=== PATIENT | male | born 1955 | race Caucasian/White ===

== ENCOUNTER 2021-06-03 20:53 | Inpatient (IN) | payer MEDICARE, BC ==
[2021-06-03] MEDS ORDERED: ONDANSETRON 4 MG/2 ML VIAL IVP STA (21:25)
[2021-06-03] MEDS ORDERED: KETOROLAC 15 MG/ML 1 ML VIAL IVP STA (21:25)
[2021-06-03] MEDS ORDERED: SODIUM CHLORIDE 0.9% 1,000 ML IV ONE (21:26)
--- NOTE | 2021-06-03 21:57 | XR ---
EXAMINATION TYPE: XR chest 1V portable DATE OF EXAM: 06/03/2021 COMPARISON: NONE HISTORY: Short of breath TECHNIQUE: Single view FINDINGS: There is no heart failure nor confluent pneumonic infiltrate. There are chest leads. Costop hrenic angles are clear. Bony thorax is intact. IMPRESSION: No active cardiopulmonary disease.
[2021-06-03 22:25] LABS: Basophils % (A) 0 %; Eosinophils # (A) 0.1 k/uL (0-0.7); Eosinophils % (A) 1 %; HCT 43.3 % (39.0-53.0); HGB 14.3 gm/dL (13.0-17.5); Lymphocytes # (A) 0.7 k/uL (1.0-4.8); Lymphocytes % (A) 8 %; MCH 30.6 pg (25.0-35.0); MCV 92.6 fL (80.0-100.0); Monocytes # (A) 0.6 k/uL (0-1.0); Monocytes % (A) 6 %; Neutrophils # (A) 7.7 k/uL (1.3-7.7); Neutrophils % (A) 83 %; Platelet Count 260 k/uL (150-450); RBC 4.68 m/uL (4.30-5.90); RDW 12.7 % (11.5-15.5); WBC 9.2 k/uL (3.8-10.6)
[2021-06-03 22:46] LABS: ALT 57 U/L (4-49); AST 70 U/L (17-59); African American GFR (CKD) >90 (>60 ml/min/1.73 sqM); Albumin 3.2 g/dL (3.5-5.0); Alkaline Phosphatase 87 U/L (38-126); Anion Gap 12 mmol/L; Blood Urea Nitrogen 22 mg/dL (9-20); Calcium 8.5 mg/dL (8.4-10.2); Carbon Dioxide 21 mmol/L (22-30); Chloride 101 mmol/L (98-107); Glucose 131 mg/dL (74-99); Magnesium 2.1 mg/dL (1.6-2.3); Non-African American GFR(CKD) 89 (>60 ml/min/1.73 sqM); Potassium 3.9 mmol/L (3.5-5.1); Sodium 134 mmol/L (137-145); Total Bilirubin 1.1 mg/dL (0.2-1.3); Total Protein 6.5 g/dL (6.3-8.2)
--- NOTE | 2021-06-04 | ED ---
SOB HPI - General Chief Complaint: Shortness of Breath Stated Complaint: Weakness, covid+ Source: patient, EMS Mode of arrival: EMS Limitations: no limitations - History of Present Illness Initial Comments: 66-year-old male with past history of hypertension presents emergency department for weakness. EMS was called to the house as the patient was difficult to arouse at home. He was diagnosed with Covid on Saturday after having symptoms of fatigue, weakness, lack of appetite and shortness of breath. He was seen in the [facility] on Saturday and had antibody infusion. He reports that they did a CT and there is no acute findings. He was placed on Augmentin however doesn't know what for. He has not been able to hold down any food or drink for 3 days. Admits to continued right-sided flank pain. No changes in his bladder habits. Does admit to some diarrhea. No chest pain or shortness of breath at this time. He has not been vaccinated against Covid. No alleviating, precipitating or modifying factors - Related Data Home Medications Medication Instructions Recorded Confirmed Amoxic-Pot Clav 875-125Mg 1 tab PO BID 06/03/21 06/03/21 [Augmentin 875-125] Triamterene/Hydrochlorothiazid 1 tab PO DAILY 06/03/21 06/03/21 [Maxzide 37.5-25] Allergies Allergy/AdvReac Type Severity Reaction Status Date / Time No Known Allergies Allergy Verified 06/03/21 23:39 Review of Systems ROS Statement: Those systems with pertinent positive or pertinent negative responses have been documented in the HPI. ROS Other: All systems not noted in ROS Statement are negative. Past Medical History Past Medical History: Hypertension History of Any Multi-Drug Resistant Organisms: None Reported Past Surgical History: No Surgical Hx Reported Smoking Status: Never smoker Past Alcohol Use History: None Reported Past Drug Use History: None Reported General Exam Limitations: no limitations Course Vital Signs 06/03/21 20:55 Temperature 98.9 F Pulse Rate 93 Respiratory 22 Rate Blood Pressure 115/82 O2 Sat by Pulse 91 L Oximetry Medical Decision Making - Medical Decision Making Upon arrival patient is placed in room 8. Thorough history and physical exam is performed. IV access established the patient is given a liter bolus of normal saline, 50 mg of Toradol informal grams Zofran. Laboratories his her conducted. I did attempt to get the patient's records from [facility] however we are unable to complete this successfully as phone lines or dizzy when we attempt to call. I did repeat a chest x-ray. I spoke with the patient in regards to his symptoms. Recommended admission for continued hydration and antiemetics which the patient did agree to. Will attempt to obtain the patient's [place] records in the morning. He agreed to this plan. Patient will be admitted to Dr. Aguilar - Lab Data Result diagrams: 06/03/21 21:57 06/03/21 21:57 Lab Results 06/03/21 06/03/21 06/03/21 Range/Units 21:57 21:57 21:57 WBC 9.2 (3.8-10.6) k/uL RBC 4.68 (4.30-5.90) m/uL Hgb 14.3 (13.0-17.5) gm/dL Hct 43.3 (39.0-53.0) % MCV 92.6 (80.0-100.0) fL MCH 30.6 (25.0-35.0) pg MCHC 33.0 (31.0-37.0) g/dL RDW 12.7 (11.5-15.5) % Plt Count 260 (150-450) k/uL MPV 7.0 Neutrophils % 83 % Lymphocytes % 8 % Monocytes % 6 % Eosinophils % 1 % Basophils % 0 % Neutrophils # 7.7 (1.3-7.7) k/uL Lymphocytes # 0.7 L (1.0-4.8) k/uL Monocytes # 0.6 (0-1.0) k/uL Eosinophils # 0.1 (0-0.7) k/uL Basophils # 0.0 (0-0.2) k/uL Sodium 134 L (137-145) mmol/L Potassium 3.9 (3.5-5.1) mmol/L Chloride 101 (98-107) mmol/L Carbon Dioxide 21 L (22-30) mmol/L Anion Gap 12 mmol/L BUN 22 H (9-20) mg/dL Creatinine 0.89 (0.66-1.25) mg/dL Est GFR (CKD-EPI)AfAm >90 (>60 ml/min/1.73 sqM) Est GFR (CKD-EPI)NonAf 89 (>60 ml/min/1.73 sqM) Glucose 131 H (74-99) mg/dL Plasma Lactic Acid Jerry 2.7 H* (0.7-2.0) mmol/L Calcium 8.5 (8.4-10.2) mg/dL Magnesium 2.1 (1.6-2.3) mg/dL Total Bilirubin 1.1 (0.2-1.3) mg/dL AST 70 H (17-59) U/L ALT 57 H (4-49) U/L Alkaline Phosphatase 87 (38-126) U/L Total Protein 6.5 (6.3-8.2) g/dL Albumin 3.2 L (3.5-5.0) g/dL - EKG Data EKG Comments: 12-lead EKG demonstrates a sinus rhythm with ventricular rate of 91. MN in terval 206. QRS 158. QTC of 465. Right bundle-branch block. ST depression V4 through V6. No ST segment elevation Disposition Clinical Impression: COVID-19 virus infection, Nausea and vomiting Disposition: ADMITTED IP TO THIS [facility] Condition: Stable Is patient prescribed a controlled substance at d/c from ED?: No Referrals: Robson De Jesus MD [Primary Care Provider] - 1-2 days Decision to Admit Reason: Admit from EC Decision Date: 06/04/21 Decision Time: 00:08
[2021-06-04] MEDS ORDERED: ONDANSETRON 4 MG/2 ML VIAL IVP PRN (00:08)
[2021-06-04] MEDS ORDERED: IBUPROFEN 400 MG TAB PO PRN (00:08)
[2021-06-04] MEDS ORDERED: NALOXONE 0.4 MG/ML 1 ML VIAL IV PRN (00:08)
[2021-06-04] MEDS: DEXAMETHASONE SOD PHOSPHATE 10 MG/ML 1 ML VIAL IVP SCH ×2 (01:48→08:58)
[2021-06-04] MEDS: SODIUM CHLORIDE 0.9% 1,000 ML IV SCH ×4 (01:50→18:31)
[2021-06-04 02:25] LABS: INR 1.1 (<1.2); Partial Thromboplastin Time 24.4 sec (22.0-30.0); Prothrombin Time 11.4 sec (9.0-12.0)
[2021-06-04 07:41] LABS: Appearance,Urine Cloudy (Clear); Bilirubin,Urine 1+ (Negative); Blood,Urine Negative (Negative); Color,Urine Dark Yellow; Glucose,Urine (UA) Trace (Negative); Hyaline Casts,Urine 8 /lpf (0-2); Ketones,Urine 1+ (Negative); Leukocyte Esterase,Urine Negative (Negative); Mucus,Urine Many /hpf; Nitrite,Urine Negative (Negative); Protein,Urine 1+ (Negative); RBC,Urine <1 /hpf (0-5); Specific Gravity,Urine 1.032 (1.001-1.035); Squamous Epithelial Cell,Urine 1 /hpf (0-4); WBC,Urine 6 /hpf (0-5)
[2021-06-04] MEDS: AMOXIC-POT CLAV 875-125MG 1 EACH TAB PO SCH ×2 (08:14→21:53)
[2021-06-04] MEDS ORDERED: TRIAMTERENE-HCTZ 37.5-25MG 1 EACH TAB PO SCH (09:00)
[2021-06-04] MEDS ORDERED: ENOXAPARIN 40 MG/0.4 ML SYRINGE SQ SCH (12:45)
[2021-06-04 13:51] LABS: African American GFR (CKD) >90 (>60 ml/min/1.73 sqM); Anion Gap 11 mmol/L; Blood Urea Nitrogen 23 mg/dL (9-20); Calcium 8.5 mg/dL (8.4-10.2); Carbon Dioxide 21 mmol/L (22-30); Chloride 102 mmol/L (98-107); Glucose 213 mg/dL (74-99); Non-African American GFR(CKD) 85 (>60 ml/min/1.73 sqM); Potassium 4.3 mmol/L (3.5-5.1); Sodium 134 mmol/L (137-145)
[2021-06-04] MEDS ORDERED: RX INFO: IV CONTRAST WAS GIVEN 1 EACH MISC MISCELLANE PRN (16:36)
--- NOTE | 2021-06-04 16:44 | P.HPIM ---
History of Present Illness H&P Date: 06/04/21 Chief Complaint: Weak tired This is a pleasant 66-year-old patient who follows with Dr. De Jesus. Patient is having 5 days symptoms of fever or chills decreased taste and smell some loose stools very poor appetite tired rundown. 7 days ago on Saturday patient tested for positive for COVID. 19. Patient received immunoglobulin infusion on Saturday. Patient had not taken the COVID-19 vaccine. Progressively patient became more and more weak. Some shortness of breath. Very tired rundown. Barely able to eat for last 3 days. Has brought to the ER. In the ER patient had his first meal earlier today. Review of systems: GEN.: Decreased appetite tired and rundown EYES: None HEENT: None NECK: None RESPIRATORY: Short of breath CARDIOVASCULAR: None GASTROINTESTINAL: Some diarrhea GENITOURINARY: None MUSCULOSKELETAL: Muscle achiness LYMPHATICS: None HEMATOLOGICAL: None PSYCHIATRY: None NEUROLOGICAL: None Past medical history to include: Hypertension Social history: Mother lives with him. Works as a daily followed. No smoking no alcohol. Family history: Reviewed, noncontributory to presentation Physical examination: VITAL SIGNS: 98.9, 93, 22, 150/82, 91% on room air GENERAL: BMI 30.7, reclining bed, awake, tired. EYES: Pupils equal. Conjunctiva normal. HEENT: External appearance of nose and ears normal, oral cavity grossly normal. NECK: JVD not raised; masses not palpable. HEART: First and second heart sounds are normal; no edema. LUNGS: Respiratory rate normal; decreased breath sound some basal crackles. ABDOMEN: Soft, nontender, liver spleen not palpable, no masses palpable. PSYCH: Alert and oriented x3; mood and affect normal. MUSCULOSKELETAL:No Clubbing/cyanosis;muscles-grossly intact NEUROLOGICAL: Cranial nerves grossly intact; no facial asymmetry, power and sensation grossly intact. LYMPHATICS: No lymph nodes palpable in the axilla and neck INVESTIGATIONS, reviewed in the clinical context: D-dimer greater than 34 White count 9.2 hemoglobin 14.3 platelets 260 sodium 134 potassium 3.9 BUN 22 creatinine 0.89 Lactic acid 2.7 AST 17 ALT 57 albumin 3.2 Coronavirus [PCR]: Detected EKG tracing sinus rhythm, right bundle branch block, some ST segment changes. Chest x-ray film personally reviewed by me-possible right-sided infiltrate Assessment and plan: -Acute COVID 19 pneumonitis. Tested +7 days prior to presentation. Had symptoms 5 days prior to that. Did not receive the vaccine from the same. Dexamethasone subcu Lovenox -Acute hypoxic respiratory failure from COVID 19 pneumonitis Oxygen supplementation. Dexamethasone. -Acute dehydration from poor oral intake IV fluids -Acute medical asthenia from COVID-19 from decreased oral intake -Essential hypertension Currently hold diuretics. -Abnormal EKG. 2-D echocardiogram. Troponin. Patient does not have any chest pain. Telemetry. -V fluids. Dexamethasone. Diet as tolerated. Oxygen supplementation. Lovenox 100 mg subcu every 12. CT chest rule out PE. Care was discussed with the patient. Activity as tolerated. Past Medical History Past Medical History: Hypertension History of Any Multi-Drug Resistant Organisms: None Reported Past Surgical History: No Surgical Hx Reported Smoking Status: Never smoker Past Alcohol Use History: None Reported Past Drug Use History: None Reported - Past Family History Father Family Medical History: Unable to Obtain Medications and Allergies Home Medications Medication Instructions Recorded Confirmed Type Amoxic-Pot Clav 875-125Mg 1 tab PO BID 06/03/21 06/03/21 History [Augmentin 875-125] Triamterene/Hydrochlorothiazid 1 tab PO DAILY 06/03/21 06/03/21 History [Maxzide 37.5-25] Allergies Allergy/AdvReac Type Severity Reaction Status Date / Time No Known Allergies Allergy Verified 06/03/21 23:39 Physical Exam Vitals: Vital Signs Temp Pulse Pulse Resp BP BP Pulse Ox 06/04/21 11:32 97.7 F 84 18 115/79 98 06/04/21 10:53 70 06/04/21 08:45 70 18 06/04/21 08:05 98.2 F 70 18 100/76 98 06/04/21 06:00 98.4 F 79 16 106/74 99 06/04/21 01:00 98.4 F 77 16 92/72 96 06/03/21 20:55 98.9 F 93 22 115/82 91 L Intake and Output 06/03/21 06/04/21 06/04/21 22:59 06:59 14:59 Output Total 340 Balance -340 Output: Urine 340 Other: # Voids 1 Weight 99.79 kg 99.79 kg Results CBC & Chem 7: 06/03/21 21:57 06/04/21 13:10 Labs: Abnormal Lab Results - Last 24 Hours (Table) 06/03/21 06/03/21 06/03/21 Range/Units 21:57 21:57 21:57 Lymphocytes # 0.7 L (1.0-4.8) k/uL Sodium 134 L (137-145) mmol/L Carbon Dioxide 21 L (22-30) mmol/L BUN 22 H (9-20) mg/dL Glucose 131 H (74-99) mg/dL Plasma Lactic Acid Jerry 2.7 H* (0.7-2.0) mmol/L AST 70 H (17-59) U/L ALT 57 H (4-49) U/L Albumin 3.2 L (3.5-5.0) g/dL Urine Protein (Negative) Urine Glucose (UA) (Negative) Urine Ketones (Negative) Urine Bilirubin (Negative) Urine WBC (0-5) /hpf Hyaline Casts (0-2) /lpf Urine Mucus (None) /hpf Coronavirus (PCR) (Not Detectd) 06/04/21 06/04/21 Range/Units 01:11 07:22 Lymphocytes # (1.0-4.8) k/uL Sodium (137-145) mmol/L Carbon Dioxide (22-30) mmol/L BUN (9-20) mg/dL Glucose (74-99) mg/dL Plasma Lactic Acid Jerry (0.7-2.0) mmol/L AST (17-59) U/L ALT (4-49) U/L Albumin (3.5-5.0) g/dL Urine Protein 1+ H (Negative) Urine Glucose (UA) Trace H (Negative) Urine Ketones 1+ H (Negative) Urine Bilirubin 1+ H (Negative) Urine WBC 6 H (0-5) /hpf Hyaline Casts 8 H (0-2) /lpf Urine Mucus Many H (None) /hpf Coronavirus (PCR) Detected A (Not Detectd)
[2021-06-04 17:40] LABS: Glucose,Whole Blood 211 mg/dL (75-99)
--- NOTE | 2021-06-04 19:49 | CT ---
EXAMINATION TYPE: CT angio chest DATE OF EXAM: 06/04/2021 COMPARISON: None HISTORY: Elevated d-dimer, Covid + CT DLP: 484.9 mGycm Automated exposure control for dose reduction was used. CONTRAST: Performed with IV Contrast, patient injected with 100 mL of Isovue 370. Images obtained from the thoracic inlet to the diaphragm with IV contrast. There are Three-D postproc essed images. There is right pleural effusion. There is some mild infiltrate or atelectasis right lung base. There is mild subsegmental atelectasis left lung base. There are multiple large filling defects in the lowe r lobe pulmonary arteries bilaterally. There is also some involvement of the upper lobe pulmonary art eries. Heart size is normal. There is no pericardial effusion. There is no mediastinal adenopathy. There are no hilar masses. The bony thorax is intact. There is some spurring in the thoracic spine. IMPRESSION: Multiple large pulmonary emboli in the upper and lower lobes and predominantly in the lower lobes. No evidence of right heart strain. Right lower lobe infiltrate and pleural fluid could relate to pulmonary infarct. The results of this exam were discussed with the patient's attending staff on the nursing station at 7:45 PM.
[2021-06-04] MEDS ORDERED: ENOXAPARIN 100 MG/ML SYRINGE SQ SCH (21:00)
[2021-06-04] MEDS ORDERED: HEPARIN SODIUM 1,000 UN/ML (10ML VL) IV ONE (21:01)
[2021-06-04] MEDS ORDERED: HEPARIN SODIUM 1,000 UN/ML (10ML VL) IV PRN (21:01)
[2021-06-04] MEDS: HEPARIN SOD,PORK IN 0.45% NACL 25,000 UNIT in 0.45% NACL 1 250ML.BAG IV SCH (21:54)
[2021-06-04 22:34] LABS: Basophils % (A) 0 %; Eosinophils % (A) 0 %; HCT 41.8 % (39.0-53.0); HGB 13.6 gm/dL (13.0-17.5); Lymphocytes # (A) 0.8 k/uL (1.0-4.8); Lymphocytes % (A) 6 %; MCH 30.1 pg (25.0-35.0); MCHC 32.4 g/dL (31.0-37.0); MCV 92.9 fL (80.0-100.0); Mean Platelet Volume 7.4; Monocytes # (A) 0.7 k/uL (0-1.0); Monocytes % (A) 6 %; Neutrophils # (A) 10.3 k/uL (1.3-7.7); Neutrophils % (A) 86 %; Platelet Count 255 k/uL (150-450); RDW 12.3 % (11.5-15.5); WBC 11.9 k/uL (3.8-10.6)
[2021-06-04 23:09] LABS: INR 1.2 (<1.2); Partial Thromboplastin Time 159.5 sec (22.0-30.0); Prothrombin Time 12.9 sec (9.0-12.0)
[2021-06-05] MEDS: ACETAMINOPHEN TAB 325 MG TAB PO PRN ×2 (00:22→20:24)
[2021-06-05] MEDS: SODIUM CHLORIDE 0.9% 1,000 ML IV SCH ×7 (03:24→17:15)
[2021-06-05 09:22] LABS: Basophils % (A) 0 %; Eosinophils % (A) 0 %; HCT 40.9 % (39.0-53.0); HGB 13.3 gm/dL (13.0-17.5); Lymphocytes # (A) 0.9 k/uL (1.0-4.8); Lymphocytes % (A) 7 %; MCH 30.6 pg (25.0-35.0); MCHC 32.5 g/dL (31.0-37.0); MCV 94.1 fL (80.0-100.0); Mean Platelet Volume 7.4; Monocytes # (A) 0.6 k/uL (0-1.0); Monocytes % (A) 4 %; Neutrophils # (A) 11.2 k/uL (1.3-7.7); Neutrophils % (A) 88 %; Partial Thromboplastin Time 41.2 sec (22.0-30.0); Platelet Count 261 k/uL (150-450); RBC 4.35 m/uL (4.30-5.90); RDW 12.5 % (11.5-15.5); WBC 12.8 k/uL (3.8-10.6)
[2021-06-05] MEDS: DEXAMETHASONE SOD PHOSPHATE 10 MG/ML 1 ML VIAL IVP SCH (09:23)
[2021-06-05] MEDS: AMOXIC-POT CLAV 875-125MG 1 EACH TAB PO SCH (09:23)
[2021-06-05 09:41] LABS: African American GFR (CKD) >90 (>60 ml/min/1.73 sqM); Anion Gap 6 mmol/L; Blood Urea Nitrogen 29 mg/dL (9-20); C Reactive Protein 6.6 mg/dL (<1.0); Calcium 8.2 mg/dL (8.4-10.2); Carbon Dioxide 20 mmol/L (22-30); Chloride 107 mmol/L (98-107); Glucose 177 mg/dL (74-99); Non-African American GFR(CKD) >90 (>60 ml/min/1.73 sqM); Potassium 4.1 mmol/L (3.5-5.1); Sodium 133 mmol/L (137-145)
--- NOTE | 2021-06-05 12:44 | ECHOF ---
Referral Reason: MEASUREMENTS -------- HEIGHT: 180.3 cm WEIGHT: 99.8 kg BP: 117/84 RVIDd: 4.1 cm (< 3.3) IVSd: 1.3 cm (0.6 - 1.1) LVIDd: 3.9 cm (3.9 - 5.3) LVPWd: 1.3 cm (0.6 - 1.1) IVSs: 2.1 cm LVIDs: 3.1 cm LVPWs: 2.2 cm LA Diam: 2.8 cm (2.7 - 3.8) Ao Diam: 3.7 cm (2.0 - 3.7) AV Cusp: 2.6 cm (1.5 - 2.6) MV EXCURSION: 18.395 mm (> 18.000) MV EF SLOPE: 62 mm/s (70 - 150) EPSS: 0.3 cm MV E Dmitry: 0.73 m/s MV DecT: 249 ms MV A Dmitry: 0.75 m/s MV E/A Ratio: 0.97 RAP: 5.00 mmHg RVSP: 42.27 mmHg TAPSE: 17.57 mm FINDINGS -------- Sinus rhythm. This was a technically adequate study. The left ventricular size is normal. There is mild concentric left ventricular hypertrophy. Overa ll left ventricular systolic function is normal with, an EF between 55 - 60 %. The right ventricle is moderately enlarged. The right ventricular systolic function is moderately i mpaired. Trabeculae seen in RV. The left atrium is normal in size. The right atrial size is normal. Interatrial and interventricular septum intact. The aortic valve is trileaflet, and appears structurally normal. No aortic stenosis or regurgitation. The mitral valve is normal. Mild mitral regurgitation is present. The tricuspid valve appears structurally normal. Mild tricuspid regurgitation present. There is m ild pulmonary hypertension. The right ventricular systolic pressure, as measured by Doppler, is 42. 27mmHg. The pulmonic valve is normal. The aortic root size is normal. Normal inferior vena cava with normal inspiratory collapse consistent with estimated right atrial pre ssure of 5 mmHg. There is no pericardial effusion. CONCLUSIONS -------- 1. There is mild concentric left ventricular hypertrophy. 2. Overall left ventricular systolic function is normal with, an EF between 55 - 60 %. 3. The right ventricle is moderately enlarged. 4. The right ventricular systolic function is moderately impaired. 5. The aortic valve is trileaflet, and appears structurally normal. No aortic stenosis or regurgitati on. 6. Mild mitral regurgitation is present. 7. Mild tricuspid regurgitation present. 8. There is mild pulmonary hypertension. 9. There is no pericardial effusion. HOP SORTER: Clarissa Navarrete RDCS
[2021-06-05] MEDS ORDERED: REMDESIVIR 200 MG in SODIUM CHLORIDE 0.9% 250 ML IVPB ONE (13:00)
--- NOTE | 2021-06-05 14:48 | P.CNPUL ---
History of Present Illness Consult date: 06/05/21 Requesting physician: Anthony Aguilar Reason for consult: dyspnea, hypoxemia, pulmonary embolism, abnormal CXR/CT Chief complaint: Respiratory distress. History of present illness: Pulmonary consult dated 06/05/2021. 66-year-old male that we seen today in room 363, in consultation. The patient apparently presented to the emergency department on 06/03/2021, complaining of shortness of breath, and weakness. He apparently been sick for 2 or 3 days prior to coming into the emergency room. He apparently was profoundly weak at home, and when EMS arrived to the home, he was difficult to arouse. He states that he was "unconscious". He apparently was recently diagnosed as having coronavirus infection, with symptoms of fatigue and weakness. He apparently was seen at the [facility] on a prior Saturday, and had antibody infusion. At that time, he apparently had a CT, but there was no reported pulmonary emboli. He was placed on Augmentin recently, for suspected gallbladder disease. The patient has not been vaccinated against coronavirus infection. He recently did have an episode of shingles. Other than hypertension, the patient has no known past medical or surgical history. He is a lifelong nonsmoker. He denies any alcohol or illicit drug use. Chest x-ray here was not too remarkable. CT angiogram showed significant bilateral pulmonary emboli, with significant clot burden. No right heart strain on CT angiogram, and an echocardiogram was ordered. We did ask vascular surgery to see the patient. White count 12.8, hemoglobin 13.3, hematocrit 40.9, platelet count 261,000. D-dimer was greater than 34.1. Sodium 133, potassium 4.1, chlorides 107, CO2 20, anion gap 6, BUN 29, and creatinine 0.84. Troponin was 0.423. C-reactive protein was 6.6. Echocardiogram revealed mild concentric left ventricular hypertrophy, with an ejection fraction between 55-60%. The right ventricle was moderately enlarged. The right ventricular systolic function is moderately impaired. [place] relatively normal. There was mild mitral regurgitation and mild tricuspid regurgitation, and mild pulmonary hypertension. Review of Systems REVIEW OF SYSTEMS: CONSTITUTIONAL: Fatigue and weakness. NEUROLOGIC: [ Negative.] HEENT: [ Negative.] CARDIAC: [Negative.] PULMONARY: Shortness of breath. GI: Poor appetite. Diarrhea. : [Negative.] RHEUMATOLOGIC: [ Negative.] IMMUNOLOGIC: [ Negative.] ENDOCRINE: [Negative. ] DERMATOLOGIC: [Negative.] Past Medical History Past Medical History: Hypertension History of Any Multi-Drug Resistant Organisms: None Reported Past Surgical History: No Surgical Hx Reported Smoking Status: Never smoker Past Alcohol Use History: None Reported Past Drug Use History: None Reported - Past Family History Father Family Medical History: Unable to Obtain Medications and Allergies Home Medications Medication Instructions Recorded Confirmed Type Amoxic-Pot Clav 875-125Mg 1 tab PO BID 06/03/21 06/03/21 History [Augmentin 875-125] Triamterene/Hydrochlorothiazid 1 tab PO DAILY 06/03/21 06/03/21 History [Maxzide 37.5-25] Allergies Allergy/AdvReac Type Severity Reaction Status Date / Time No Known Allergies Allergy Verified 06/03/21 23:39 Physical Exam Osteopathic Statement: *. No significant issues noted on an osteopathic structural exam other than those noted in the History and Physical/Consult. Vitals: Vital Signs Temp Pulse Resp BP Pulse Ox 06/05/21 12:00 70 20 133/64 98 06/05/21 08:00 98.1 F 74 20 109/69 98 06/05/21 04:00 98.3 F 64 20 117/84 96 06/05/21 02:00 68 20 06/05/21 00:00 97.5 F L 68 20 104/75 96 06/04/21 20:00 97.5 F L 77 20 109/69 96 06/04/21 18:33 97.7 F 83 20 98/75 98 06/04/21 18:22 88 104/67 06/04/21 17:54 90 20 100/77 99 06/04/21 15:00 80 144/76 Intake and Output 06/04/21 06/05/21 06/05/21 22:59 06:59 14:59 Intake Total 24.847 620.709 Output Total 300 150 525 Balance -300 -125.153 95.709 Intake: Intake, IV Titration 24.847 140.709 Amount Heparin Sod,Pork in 0.45% 24.847 140.709 NaCl 25,000 unit In 0.45 % NaCl 1 250ml.bag @ 18 UNITS/KG/HR 17.962 mls/hr IV .[id number] [facility] Rx#: [id number] Oral 480 Output: Urine 300 150 525 Other: Voiding Method Urinal Urinal No acute distress, oriented 3. Currently on 2 L nasal cannula. HEENT examination is grossly unremarkable. Neck supple. Full range of motion. No adenopathy thyromegaly or neck vein d istention. Cardiovascular examination reveals regular rhythm rate. S1-S2 normal. No S3 or S4. No discernible murmur noted. Heart rate 70 bpm. Lungs reveal mild bilateral rhonchi. No wheezes or crackles. Breath sounds equal bilaterally. Saturations are 98% on 2 L. Abdomen soft bowel sounds are heard. No masses or tenderness. Extremities are intact. No cyanosis clubbing or edema. Skin is without rash or lesion. Neurologic examination is brief but nonfocal. Results - Laboratory Findings CBC and BMP: 06/05/21 08:40 06/05/21 08:40 PT/INR, D-dimer PT 12.9 sec (9.0-12.0) H 06/04/21 22:13 INR 1.2 (<1.2) H 06/04/21 22:13 D-Dimer >34.10 mg/L FEU (<0.60) H 06/05/21 08:40 Abnormal lab findings: Abnormal Labs 06/03/21 06/03/21 06/03/21 21:57 21:57 21:57 WBC Neutrophils # Lymphocytes # 0.7 L PT INR APTT D-Dimer Sodium 134 L Carbon Dioxide 21 L BUN 22 H Glucose 131 H POC Glucose (mg/dL) Plasma Lactic Acid Jerry 2.7 H* Calcium AST 70 H ALT 57 H Troponin I C-Reactive Protein Albumin 3.2 L Urine Protein Urine Glucose (UA) Urine Ketones Urine Bilirubin Urine WBC Hyaline Casts Urine Mucus Coronavirus (PCR) 06/04/21 06/04/21 06/04/21 01:11 07:22 13:10 WBC Neutrophils # Lymphocytes # PT INR APTT D-Dimer >34.10 H Sodium Carbon Dioxide BUN Glucose POC Glucose (mg/dL) Plasma Lactic Acid Jerry Calcium AST ALT Troponin I C-Reactive Protein Albumin Urine Protein 1+ H Urine Glucose (UA) Trace H Urine Ketones 1+ H Urine Bilirubin 1+ H Urine WBC 6 H Hyaline Casts 8 H Urine Mucus Many H Coronavirus (PCR) Detected A 06/04/21 06/04/21 06/04/21 13:10 17:39 18:09 WBC Neutrophils # Lymphocytes # PT INR APTT D-Dimer Sodium 134 L Carbon Dioxide 21 L BUN 23 H Glucose 213 H POC Glucose (mg/dL) 211 H Plasma Lactic Acid Jerry Calcium AST ALT Troponin I 0.423 H* C-Reactive Protein Albumin Urine Protein Urine Glucose (UA) Urine Ketones Urine Bilirubin Urine WBC Hyaline Casts Urine Mucus Coronavirus (PCR) 06/04/21 06/04/21 06/05/21 22:13 22:13 08:40 WBC 11.9 H 12.8 H Neutrophils # 10.3 H 11.2 H Lymphocytes # 0.8 L 0.9 L PT 12.9 H INR 1.2 H APTT 159.5 H* D-Dimer Sodium Carbon Dioxide BUN Glucose POC Glucose (mg/dL) Plasma Lactic Acid Jerry Calcium AST ALT Troponin I C-Reactive Protein Albumin Urine Protein Urine Glucose (UA) Urine Ketones Urine Bilirubin Urine WBC Hyaline Casts Urine Mucus Coronavirus (PCR) 06/05/21 06/05/21 08:40 08:40 WBC Neutrophils # Lymphocytes # PT INR APTT 41.2 H D-Dimer >34.10 H Sodium 133 L Carbon Dioxide 20 L BUN 29 H Glucose 177 H POC Glucose (mg/dL) Plasma Lactic Acid Jerry Calcium 8.2 L AST ALT Troponin I C-Reactive Protein 6.6 H Albumin Urine Protein Urine Glucose (UA) Urine Ketones Urine Bilirubin Urine WBC Hyaline Casts Urine Mucus Coronavirus (PCR) - Diagnostic Findings Chest x-ray: image reviewed CT scan - chest: image reviewed Assessment and Plan Assessment: Acute bilateral pulmonary emboli, with significant clot burden, secondary to coronavirus infection. Acute coronavirus infection, with minimal pneumonia on x-ray/computed tomography scan. History of hypertension. Plan: Plan dated 06/05/2021. We have asked vascular surgery to see the patient or possible catheter directed TPA and ultrasound dissolution of the clot. There was no evidence of right h eart strain on the CT angiogram. The patient appears to be relatively stable with good oxygenation on 2 L. Not much or any coronavirus associated pneumonia on chest x-ray scan. The patient appears to have been sick for more than 7 days, and therefore, is not a candidate for REM. Additional recommendations and suggestions are forthcoming. Prognosis is guarded. Time with Patient: Greater than 30
[2021-06-05] MEDS ORDERED: fentaNYL (PF) 50 MCG/ML 2 ML AMP ONE (15:42)
[2021-06-05] MEDS ORDERED: MIDAZOLAM 2 MG/2 ML VIAL IVP ONE (15:43)
[2021-06-05] MEDS ORDERED: LIDOCAINE 1% INJ 10MG/ML (20 ML MDV) ONE (15:43)
[2021-06-05] MEDS ORDERED: LIDOCAINE 1% INJ 10MG/ML (20 ML MDV) SQ ONE (15:44)
[2021-06-05] MEDS ORDERED: ALTEPLASE 10 MG in SODIUM CHLORIDE 0.9% 90 ML IV ONE ×4 (15:50)
[2021-06-05] MEDS ORDERED: IV FLUID CONTINUATION 1,000 ML IV ONE (15:56)
[2021-06-05] MEDS ORDERED: ALTEPLASE 2 MG VIAL (CATHFLO) IV STA (16:03)
--- NOTE | 2021-06-05 16:37 | P.GSCN ---
History of Present Illness Consult date: 06/05/21 Reason for Consult: Submassive pulmonary embolism History of present illness: Patient is a 66-year-old male presented with a chief complaint of shortness of breath and fatigue. During workup this he was found to be COVID-[address] angiogram was performed which demonstrated submassive pulmonary emboli. Right heart strain was identified on CTA Echocardiogram demonstrated right ventricular strain. Cardiac enzymes are elevated. This is the patient's first episode of such an event. Past Medical History Past Medical History: Hypertension History of Any Multi-Drug Resistant Organisms: None Reported Past Surgical History: No Surgical Hx Reported Smoking Status: Never smoker Past Alcohol Use History: None Reported Past Drug Use History: None Reported - Past Family History Father Family Medical History: Unable to Obtain Medications and Allergies Home Medications Medication Instructions Recorded Confirmed Type Amoxic-Pot Clav 875-125Mg 1 tab PO BID 06/03/21 06/03/21 History [Augmentin 875-125] Triamterene/Hydrochlorothiazid 1 tab PO DAILY 06/03/21 06/03/21 History [Maxzide 37.5-25] Allergies Allergy/AdvReac Type Severity Reaction Status Date / Time No Known Allergies Allergy Verified 06/03/21 23:39 Surgical - Exam Osteopathic Statement: *. No significant issues noted on an osteopathic structural exam other than those noted in the History and Physical/Consult. Vital Signs Temp Pulse Resp BP Pulse Ox 98.9 F 93 22 115/82 91 L 06/03/21 20:55 06/03/21 20:55 06/03/21 20:55 06/03/21 20:55 06/03/21 20:55 - Neck no masses - Respiratory other (Decreased breath sounds are noted bilaterally.) - Cardiovascular Heart Sounds: normal: S1, S2 Results - Labs 06/05/21 08:40 06/05/21 08:40 Abnormal Lab Results - Last 24 Hours (Table) 06/04/21 06/04/21 06/04/21 Range/Units 17:39 18:09 22:13 WBC 11.9 H (3.8-10.6) k/uL Neutrophils # 10.3 H (1.3-7.7) k/uL Lymphocytes # 0.8 L (1.0-4.8) k/uL PT (9.0-12.0) sec INR (<1.2) APTT (22.0-30.0) sec D-Dimer (<0.60) mg/L FEU Sodium (137-145) mmol/L Carbon Dioxide (22-30) mmol/L BUN (9-20) mg/dL Glucose (74-99) mg/dL POC Glucose (mg/dL) 211 H (75-99) mg/dL Calcium (8.4-10.2) mg/dL Troponin I 0.423 H* (0.000-0.034) ng/mL C-Reactive Protein (<1.0) mg/dL 06/04/21 06/05/21 06/05/21 Range/Units 22:13 08:40 08:40 WBC 12.8 H (3.8-10.6) k/uL Neutrophils # 11.2 H (1.3-7.7) k/uL Lymphocytes # 0.9 L (1.0-4.8) k/uL PT 12.9 H (9.0-12.0) sec INR 1.2 H (<1.2) APTT 159.5 H* (22.0-30.0) sec D-Dimer (<0.60) mg/L FEU Sodium 133 L (137-145) mmol/L Carbon Dioxide 20 L (22-30) mmol/L BUN 29 H (9-20) mg/dL Glucose 177 H (74-99) mg/dL POC Glucose (mg/dL) (75-99) mg/dL Calcium 8.2 L (8.4-10.2) mg/dL Troponin I (0.000-0.034) ng/mL C-Reactive Protein 6.6 H (<1.0) mg/dL 06/05/21 Range/Units 08:40 WBC (3.8-10.6) k/uL Neutrophils # (1.3-7.7) k/uL Lymphocytes # (1.0-4.8) k/uL PT (9.0-12.0) sec INR (<1.2) APTT 41.2 H (22.0-30.0) sec D-Dimer >34.10 H (<0.60) mg/L FEU Sodium (137-145) mmol/L Carbon Dioxide (22-30) mmol/L BUN (9-20) mg/dL Glucose (74-99) mg/dL POC Glucose (mg/dL) (75-99) mg/dL Calcium (8.4-10.2) mg/dL Troponin I (0.000-0.034) ng/mL C-Reactive Protein (<1.0) mg/dL Diabetes panel 06/05/21 Range/Units 08:40 Sodium 133 L (137-145) mmol/L Potassium 4.1 (3.5-5.1) mmol/L Chloride 107 (98-107) mmol/L Carbon Dioxide 20 L (22-30) mmol/L BUN 29 H (9-20) mg/dL Creatinine 0.84 (0.66-1.25) mg/dL Glucose 177 H (74-99) mg/dL Calcium 8.2 L (8.4-10.2) mg/dL Calcium panel 06/05/21 Range/Units 08:40 Calcium 8.2 L (8.4-10.2) mg/dL Pituitary panel 06/05/21 Range/Units 08:40 Sodium 133 L (137-145) mmol/L Potassium 4.1 (3.5-5.1) mmol/L Chloride 107 (98-107) mmol/L Carbon Dioxide 20 L (22-30) mmol/L BUN 29 H (9-20) mg/dL Creatinine 0.84 (0.66-1.25) mg/dL Glucose 177 H (74-99) mg/dL Calcium 8.2 L (8.4-10.2) mg/dL Adrenal panel 06/05/21 Range/Units 08:40 Sodium 133 L (137-145) mmol/L Potassium 4.1 (3.5-5.1) mmol/L Chloride 107 (98-107) mmol/L Carbon Dioxide 20 L (22-30) mmol/L BUN 29 H (9-20) mg/dL Creatinine 0.84 (0.66-1.25) mg/dL Glucose 177 H (74-99) mg/dL Calcium 8.2 L (8.4-10.2) mg/dL Assessment and Plan Assessment: Submassive pulmonary emboli. Plan: At a long discussion with the patient in reference to pulmonary embolism. I believe the patient would benefit from pulmonary thrombolyzes. The procedure, risk and benefits were discussed. Patient wished to proceed. Consent form was signed. Time with Patient: Greater than 30
--- NOTE | 2021-06-05 16:44 | P.OP ---
Date of Procedure: 06/05/21 Preoperative Diagnosis: Submassive pulmonary emboli. Postoperative Diagnosis: Same. Procedure(s) Performed: #1: Ultrasound-guided cannulation of the right femoral vein 2. #2: Placement of pulmonary artery catheter (Ekos) selectively into the right and left pulmonary arteries. #3: Initiation of TPA thrombo-lysis. Anesthesia: local (1% Xylocaine.) Surgeon: [place] Estimated Blood Loss (ml): 5 Urine output (ml): 0 Pathology: none sent Condition: stable Disposition: ICU (Per protocol.) Indications for Procedure: Patient is a 66-year-old male who presented with generalized weakness and shortness of breath. During workup of his complaints was found be suffering from a submassive pulmonary embolism. He was started on IV heparin therapy. Echocardiogram demonstrated right heart strain and cardiac enzymes were elevated. The right ventricle on CTA was also dilated all suggesting right heart strain. Because of the symptoms and evaluation patient was offered TPA thrombolyzes. The procedure, risk and benefits were discussed with the patient. Patient wished to proceed. Description of Procedure: Patient brought to the special procedure suite. Both groins were sterilely prepped and draped in usual manner. Utilizing ultrasound the right common femoral vein was identified. This was fully compressible and free of any visible thrombus. 1% Xylocaine was utilized for local anesthesia tissues overlying the femoral vein. Through this anesthetized area a multipurpose needle was utilized to cannulate the vein and once cannulated Softip guidewire was advanced into the vein. The needle was withdrawn and a 6-Yemeni sheath was placed. A second 6-Yemeni sheath was placed in the same manner as described for the first. Angled glide catheter and glide advantage guidewire were advanced under fluoroscopic guidance into the right pulmonary artery. The guidewire was then advanced into a pulmonary segment in the lower lobe. The guidewire was withdrawn and through the catheter the EKOS catheter was advanced over the guidewire. Guidewire was withdrawn. The catheter was flushed with heparinized saline solution and the vibratory portion of the catheter was advanced and positioned appropriately. A similar procedure was performed while selecting the left pulmonary artery. Through each catheter 2 mg of TPA were infused to initiate thrombolyzes. Each sheath was secured to skin with nylon suture. Prop er dressings were applied. Patient tolerated procedure well. TPA will be started at 1 mg per hour through each of the 2 pulmonary artery catheters. Additionally 250 mg of heparin will be infused via the side port of each the 2 mL's. Total time for TPA infusion is scheduled for 10 hours. Total fluoroscopy time 8.3 minutes.
[2021-06-05] MEDS: HEPARIN SOD,PORK IN 0.45% NACL 25,000 UNIT in 0.45% NACL 1 250ML.BAG IV SCH ×3 (16:48→17:10)
[2021-06-05] MEDS: CHOLECALCIFEROL 125 MCG (5000 IU) TABLET PO SCH (16:48)
[2021-06-05] MEDS: ZINC SULFATE 220 MG CAP PO SCH (16:48)
[2021-06-05] MEDS: ASCORBIC ACID 500 MG TAB PO SCH ×2 (16:48→20:24)
[2021-06-05 17:07] LABS: Glucose,Whole Blood 124 mg/dL (75-99)
[2021-06-05 18:21] LABS: Basophils % (A) 0 %; Eosinophils % (A) 0 %; HCT 40.6 % (39.0-53.0); Lymphocytes # (A) 0.6 k/uL (1.0-4.8); Lymphocytes % (A) 5 %; MCH 29.7 pg (25.0-35.0); MCV 92.6 fL (80.0-100.0); Mean Platelet Volume 7.3; Monocytes # (A) 0.4 k/uL (0-1.0); Monocytes % (A) 4 %; Neutrophils # (A) 10.9 k/uL (1.3-7.7); Neutrophils % (A) 91 %; Platelet Count 288 k/uL (150-450); RBC 4.39 m/uL (4.30-5.90); RDW 12.9 % (11.5-15.5)
[2021-06-05 18:23] LABS: African American GFR (CKD) >90 (>60 ml/min/1.73 sqM); Anion Gap 5 mmol/L; Blood Urea Nitrogen 29 mg/dL (9-20); Calcium 7.9 mg/dL (8.4-10.2); Carbon Dioxide 22 mmol/L (22-30); Chloride 106 mmol/L (98-107); Glucose 121 mg/dL (74-99); Non-African American GFR(CKD) >90 (>60 ml/min/1.73 sqM); Potassium 4.6 mmol/L (3.5-5.1); Sodium 133 mmol/L (137-145)
[2021-06-05 18:31] LABS: INR 1.1 (<1.2); Partial Thromboplastin Time 24.7 sec (22.0-30.0); Prothrombin Time 11.5 sec (9.0-12.0)
--- NOTE | 2021-06-05 18:36 | P.PN ---
Progress Note - Text Progress Note Date: 06/05/21 Chief Complaint: Weak tired This is a pleasant 66-year-old patient who follows with Dr. De Jesus. Patient is having 5 days symptoms of fever or chills decreased taste and smell some loose stools very poor appetite tired rundown. 7 days ago on Saturday patient tested for positive for COVID. 19. Patient received immunoglobulin infusion on Saturday. Patient had not taken the COVID-19 vaccine. Progressively patient became more and more weak. Some shortness of breath. Very tired rundown. Barely able to eat for last 3 days. Has brought to the ER. In the ER patient had his first meal earlier today. June 05: Patient's computed tomography scan confirmed a large pulmonary embolism load and a 2-D echocardiogram showing right ventricle dilatation. Patient started on IV heparin last night. I spoke to Dr. Goldstein this morning. Late in the afternoon he took the patient down for thrombolysis. Saw the patient before the procedure. Tired. Some shortness of breath. Patient beginning tPA and IV heparin for a total of 10 hours. Through [facility] system. Active Medications Acetaminophen (Acetaminophen Tab 325 Mg Tab) 650 mg PO Q6HR PRN PRN Reason: Mild Pain or Fever > 100.5 Last Admin: 06/05/21 00:22 Dose: 650 mg Documented by: Hydrocodone Bitart/Acetaminophen (Hydrocodone/Apap 5-325mg 1 Each Tab) 1 each PO Q4HR PRN PRN Reason: Pain Scale 4 - 6 Ascorbic Acid (Ascorbic Acid 500 Mg Tab) 500 mg PO BID [facility] Last Admin: 06/05/21 16:48 Dose: Not Given Documented by: Cholecalciferol (Cholecalciferol 125 Mcg (5000 Iu) Tablet) 125 mcg PO DAILY [facility] Last Admin: 06/05/21 16:48 Dose: Not Given Documented by: Dexamethasone Sodium Phosphate (Dexamethasone Sod Phosphate 10 Mg/Ml 1 Ml Vial) 6 mg IVP DAILY [facility] Last Admin: 06/05/21 09:23 Dose: 6 mg Documented by: Heparin Sodium (Porcine) (Heparin Sodium 1,000 Un/Ml (10ml Vl)) 0 unit IV PER PROTOCOL PRN; Protocol PRN Reason: Low PTT Sodium Chloride (Saline 0.9%) 1,000 mls @ 150 mls/hr IV .Q6H40M [facility] Last Admin: 06/05/21 17:15 Dose: 150 mls/hr Documented by: Heparin Sodium/Sodium Chloride (25,000 unit/ Sodium Chloride) 250 mls @ 17.962 mls/hr IV .[id number] [facility]; Protocol Last Admin: 06/05/21 16:48 Dose: Not Given Documented by: Sodium Chloride (Saline 0.9%) 1,000 mls @ 35 mls/hr IV .Q24H [facility] Last Admin: 06/05/21 17:10 Dose: Not Given Documented by: Sodium Chloride (Saline 0.9%) 1,000 mls @ 35 mls/hr IV .Q24H [facility] Last Admin: 06/05/21 17:10 Dose: Not Given Documented by: Sodium Chloride (Saline 0.9%) 1,000 mls @ 35 mls/hr IV .Q24H [facility] Last Admin: 06/05/21 17:10 Dose: Not Given Documented by: Alteplase, Recombinant 10 mg/ (Sodium Chloride) 100 mls @ 10 mls/hr IV .Q10H ONE; Protocol Stop: 06/06/21 01:49 Last Admin: 06/05/21 16:57 Dose: 0.1 mls Documented by: Alteplase, Recombinant 10 mg/ (Sodium Chloride) 100 mls @ 10 mls/hr IV .Q10H ONE; Protocol Stop: 06/06/21 01:49 Last Admin: 06/05/21 16:57 Dose: 0.1 mls Documented by: Heparin Sodium/Sodium Chloride (25,000 unit/ Sodium Chloride) 250 mls @ 2.5 mls/hr IV .Q24H [facility] Last Admin: 06/05/21 17:09 Dose: Not Given Documented by: Heparin Sodium/Sodium Chloride (25,000 unit/ Sodium Chloride) 250 mls @ 2.5 mls/hr IV .Q24H [facility] Last Admin: 06/05/21 17:10 Dose: Not Given Documented by: Ibuprofen (Ibuprofen 400 Mg Tab) 400 mg PO Q6HR PRN PRN Reason: Mild Pain or Fever > 100.5 Miscellaneous Information (Rx Info: Iv Contrast Was Given 1 Each Misc) 1 each MISCELLANE DAILY PRN PRN Reason: Per Protocol Stop: 06/06/21 16:37 Naloxone HCl (Naloxone 0.4 Mg/Ml 1 Ml Vial) 0.2 mg IV Q2M PRN PRN Reason: Opioid Reversal Ondansetron HCl (Ondansetron 4 Mg/2 Ml Vial) 4 mg IVP Q8HR PRN PRN Reason: Nausea And Vomiting Zinc Sulfate (Zinc Sulfate 220 Mg Cap) 220 mg PO DAILY [facility] Last Admin: 06/05/21 16:48 Dose: Not Given Documented by: Past medical history to include: Hypertension Social history: Mother lives with him. Works as a daily followed. No smoking no alcohol. Family history: Reviewed, noncontributory to presentation Physical examination: VITAL SIGNS: 98.1, 74, 20, 109/69, 98% on 3 L GENERAL: Laying bed, awake, tired. LUNGS: Respiratory rate increased; PSYCH: Alert and oriented x3; mood and affect normal. MUSCULOSKELETAL:No Clubbing/cyanosis;muscles-grossly intact NEUROLOGICAL: Cranial nerves grossly intact; no facial asymmetry, moving all 4 limbs INVESTIGATIONS, reviewed in the clinical context: 2-D echocardiogram: EF 55-60%. Right ventricle moderately enlarged. Right ventricle systolic function moderately impaired Chest CTA: Right pleural effusion. Multiple large filling defects in the lower lobe pulmonary arteries bilaterally. Some involvement of the upper lobe pulmonary arteries. D-dimer greater than 34 White count 9.2 hemoglobin 14.3 platelets 260 sodium 134 potassium 3.9 BUN 22 creatinine 0.89 Lactic acid 2.7 AST 17 ALT 57 albumin 3.2 Coronavirus [PCR]: Detected EKG tracing sinus rhythm, right bundle branch block, some ST segment changes. Chest x-ray film personally reviewed by me-possible right-sided infiltrate Assessment and plan: -Acute COVID 19 pneumonitis. Tested +7 days prior to presentation. Had symptoms 5 days prior to that. Did not receive the vaccine from the same. Dexamethasone , IV heparin -Acute Bilateral large pulmonary embolism, with right ventricular strain EKOS catheter system placed for TPN and IV heparin. -Acute hypoxic respiratory failure from COVID 19 pneumonitis Oxygen supplementation. Dexamethasone. -Acute dehydration from poor oral intake IV fluids -Acute medical asthenia from COVID-19 from decreased oral intake -Essential hypertension Currently hold diuretics. -IV heparin monitoring Follow PTT Spoke to vascular. EKOS placed for TPN and IV heparin. Continue with oxygen, dexamethasone. Follow with vascular and pulmonary.
--- NOTE | 2021-06-05 19:56 | US ---
"EXAMINATION TYPE: US venous doppler duplex LE DATE OF EXAM: 06/05/2021 6:05 PM COMPARISON: NONE CLINICAL HISTORY: Pulmonary Embolism. Patient had procedure done today with insert into right groin; UNABLE TO VISUALIZE RIGHT CFV, GSV, and DFV SIDE PERFORMED: Bilateral TECHNIQUE: The lower extremity deep venous system is examined utilizing real time linear array sonog renetta with graded compression, doppler sonography and color-flow sonography. VESSELS IMAGED: Common Femoral Vein Deep Femoral Vein Greater Saphenous Vein * Femoral Vein Popliteal Vein Small Saphenous Vein * Proximal Calf Veins (* superficial vessels) Right Leg: Negative for DVT from fem v prox/mid down Left Leg: Positive for DVT within the proximal femoral vein. Grayscale, color doppler, spectral doppler imaging performed of the deep veins of the bilateral lower extremities. Suboptimal evaluation of right lower extremity near the groin. Left lower extremity sh ows acute thrombus filling and expanding the proximal to mid superficial femoral vein with absent and diminished color flow. IMPRESSION: Acute left-sided DVT is noted. A Yellow level critical message alert has been initiated for Anthony Aguilar MD via the [employer] 36 0 | Critical Results System on 06/05/2021 7:53 PM. This message alert has been sent to Anthony Aguilar MD via the preferences provided by the clinician for the receipt of Radiology Critical Findings. [facility] ID [id number]."
[2021-06-05] MEDS: HYDROcodone/APAP 5-325MG 1 EACH TAB PO PRN (22:50)
[2021-06-06] MEDS: HEPARIN SOD,PORK IN 0.45% NACL 25,000 UNIT in 0.45% NACL 1 250ML.BAG IV SCH ×4 (05:42→17:17)
[2021-06-06 06:12] LABS: Basophils % (A) 0 %; Eosinophils % (A) 0 %; HCT 39.8 % (39.0-53.0); HGB 12.7 gm/dL (13.0-17.5); Lymphocytes # (A) 0.7 k/uL (1.0-4.8); Lymphocytes % (A) 5 %; MCHC 31.9 g/dL (31.0-37.0); MCV 94.2 fL (80.0-100.0); Mean Platelet Volume 7.2; Monocytes # (A) 0.7 k/uL (0-1.0); Monocytes % (A) 5 %; Neutrophils # (A) 11.8 k/uL (1.3-7.7); Neutrophils % (A) 88 %; Platelet Count 241 k/uL (150-450); RBC 4.23 m/uL (4.30-5.90); RDW 12.3 % (11.5-15.5); WBC 13.4 k/uL (3.8-10.6)
--- NOTE | 2021-06-06 06:30 | XR ---
EXAMINATION TYPE: XR chest 1V portable DATE OF EXAM: 06/06/2021 CLINICAL HISTORY: Difficulty breathing and weakness progress study. COVID. Known pulmonary emboli. TECHNIQUE: Single AP portable supine view of the chest is obtained. COMPARISON: Chest x-ray from 3 days earlier. CTA chest 2 days ago. FINDINGS: No new focal airspace opacity, pleural effusion, or pneumothorax seen bilaterally. Stable mild cardiomegaly. Osseous structures are intact. Overlying EKG leads redemonstrated. Radiodense soft tissue foreign body near region of right clavicle again seen. IMPRESSION: Cardiomegaly without acute pulmonary infiltrate.
[2021-06-06 06:32] LABS: African American GFR (CKD) >90 (>60 ml/min/1.73 sqM); Anion Gap 5 mmol/L; Blood Urea Nitrogen 31 mg/dL (9-20); Calcium 7.7 mg/dL (8.4-10.2); Carbon Dioxide 20 mmol/L (22-30); Chloride 109 mmol/L (98-107); Glucose 124 mg/dL (74-99); Non-African American GFR(CKD) >90 (>60 ml/min/1.73 sqM); Potassium 4.1 mmol/L (3.5-5.1); Sodium 134 mmol/L (137-145)
[2021-06-06] MEDS: HYDROcodone/APAP 5-325MG 1 EACH TAB PO PRN (06:58)
[2021-06-06] MEDS: SODIUM CHLORIDE 0.9% 1,000 ML IV SCH ×6 (06:59→17:17)
[2021-06-06] MEDS: CHOLECALCIFEROL 125 MCG (5000 IU) TABLET PO SCH (09:22)
[2021-06-06] MEDS: ZINC SULFATE 220 MG CAP PO SCH (09:22)
[2021-06-06] MEDS: DEXAMETHASONE SOD PHOSPHATE 10 MG/ML 1 ML VIAL IVP SCH (09:22)
[2021-06-06] MEDS: ASCORBIC ACID 500 MG TAB PO SCH (09:22)
--- NOTE | 2021-06-06 10:30 | P.PN ---
Subjective Progress Note Date: 06/06/21 66-year-old male that we seen today in room 363, in consultation. The patient apparently presented to the emergency department on 06/03/2021, complaining of shortness of breath, and weakness. He apparently been sick for 2 or 3 days prior to coming into the emergency room. He apparently was profoundly weak at home, and when EMS arrived to the home, he was difficult to arouse. He states that he was "unconscious". He apparently was recently diagnosed as having coronavirus infection, with symptoms of fatigue and weakness. He apparently was seen at the [facility] on a prior Saturday, and had antibody infusion. At that time, he apparently had a CT, but there was no reported pulmonary emboli. He was placed on Augmentin recently, for suspected gallbladder disease. The patient has not been vaccinated against coronavirus infection. He recently did have an episode of shingles. Other than hypertension, the patient has no known past medical or surgical history. He is a lifelong nonsmoker. He denies any alcohol or illicit drug use. Chest x-ray here was not too remarkable. CT angiogram showed significant bilateral pulmonary emboli, with significant clot burden. No right heart strain on CT angiogram, and an echocardiogram was ordered. We did ask vascular surgery to see the patient. White count 12.8, hemoglobin 13.3, hematocrit 40.9, platelet count 261,000. D-dimer was greater than 34.1. Sodium 133, potassium 4.1, chlorides 107, CO2 20, anion gap 6, BUN 29, and creatinine 0.84. Troponin was 0.423. C-reactive protein was 6.6. Echocardiogram revealed mild concentric left ventricular hypertrophy, with an ejection fraction between 55-60%. The right ventricle was moderately enlarged. The right ventricular systolic function is moderately impaired. [place] relatively normal. There was mild mitral regurgitation and mild tricuspid regurgitation, and mild pulmonary hypertension. The patient is seen today 06/06/2021 in follow-up in the intensive care unit. He is currently laying flat in bed. Awake and alert in no acute distress. Maintaining O2 saturations in the 90s on 2 L/m per nasal cannula. Today's chest x-ray reveals evidence of cardiomegaly without acute pulmonary process. White count 13.4. Hemoglobin 12.7. Lymphocytes 0.7. Fibrinogen 188. Sodium 134. Potassium 4.1. Creatinine 0.74. Dopplers of lower extremity did reveal a left leg DVT. The patient is recalling being kicked by a cow in the left leg not too long ago and has had pain since. He did undergo EKOS procedure yesterday with TPA thrombolysis. Catheters remain in place. Heparin is infusing. TPA was completed after 10 hours. He is currently stable. No shortness of breath. No chest pain. No palpitations. No dizziness or lightheadedness. Objective - Vital Signs Vital signs: Vital Signs Temp 98.0 F 06/05/21 17:15 Pulse 51 L 06/06/21 07:00 Resp 15 06/06/21 07:00 BP 135/92 06/06/21 07:00 Pulse Ox 97 06/06/21 07:00 Intake & Output 06/05/21 06/06/21 06/06/21 18:59 06:59 18:59 Intake Total 441.138 7097 150 Output Total 525 325 450 Balance 601.335 4271 -300 Intake: IV 350.2 1750 150 Alteplase 10 mg In Sodium 100 Chloride 0.9% 90 ml @ 1 MG/HR 10 mls/hr IV .Q10H ONE Rx#:[id number] Sodium Chloride 0.9% 1, 300 1650 150 000 ml @ 150 mls/hr IV . Q6H40M [facility] Rx#:[id number] Intake, IV Titration 140.709 Amount Heparin Sod,Pork in 0.45% 140.709 NaCl 25,000 unit In 0.45 % NaCl 1 250ml.bag @ 18 UNITS/KG/HR 17.962 mls/hr IV .[id number] [facility] Rx#: [id number] Oral 480 435 Output: Urine 525 325 450 Other: Voiding Method Urinal - Exam GENERAL EXAM: Alert, very pleasant 66-year-old gentleman, on 2 L nasal cannula,, comfortable in no apparent distress. HEAD: Normocephalic. EYES: Normal reaction of pupils, equal size. NOSE: Clear with pink turbinates. THROAT: No erythema or exudates. NECK: No masses, no JVD. CHEST: No chest wall deformity. LUNGS: Equal air entry with no crackles, wheeze, rhonchi or dullness. CVS: S1 and S2 normal with no audible murmur, regular rhythm. ABDOMEN: No hepatosplenomegaly, normal bowel sounds, no guarding or rigidity. SPINE: No scoliosis or deformity SKIN: No rashes CENTRAL NERVOUS SYSTEM: No focal deficits, tone is normal in all 4 extremities. EXTREMITIES: Bilateral femoral catheters in place. There is no peripheral edema. No clubbing, no cyanosis. Peripheral pulses are intact. - Labs CBC & Chem 7: 06/06/21 05:35 06/06/21 05:35 Labs: Abnormal Lab Results - Last 24 Hours (Table) 06/05/21 06/05/21 06/05/21 Range/Units 08:40 17:05 17:13 WBC (3.8-10.6) k/uL RBC (4.30-5.90) m/uL Hgb (13.0-17.5) gm/dL Neutrophils # (1.3-7.7) k/uL Lymphocytes # (1.0-4.8) k/uL Fibrinogen (200-500) mg/dL Sodium 133 L (137-145) mmol/L Chloride (98-107) mmol/L Carbon Dioxide (22-30) mmol/L BUN 29 H (9-20) mg/dL Glucose 121 H (74-99) mg/dL POC Glucose (mg/dL) 124 H (75-99) mg/dL Calcium 7.9 L (8.4-10.2) mg/dL Procalcitonin 0.17 H (0.02-0.09) ng/mL 06/05/21 06/06/21 06/06/21 Range/Units 17:13 05:35 05:35 WBC 12.0 H 13.4 H (3.8-10.6) k/uL RBC 4.23 L (4.30-5.90) m/uL Hgb 12.7 L (13.0-17.5) gm/dL Neutrophils # 10.9 H 11.8 H (1.3-7.7) k/uL Lymphocytes # 0.6 L 0.7 L (1.0-4.8) k/uL Fibrinogen 188 L (200-500) mg/dL Sodium (137-145) mmol/L Chloride (98-107) mmol/L Carbon Dioxide (22-30) mmol/L BUN (9-20) mg/dL Glucose (74-99) mg/dL POC Glucose (mg/dL) (75-99) mg/dL Calcium (8.4-10.2) mg/dL Procalcitonin (0.02-0.09) ng/mL 06/06/21 Range/Units 05:35 WBC (3.8-10.6) k/uL RBC (4.30-5.90) m/uL Hgb (13.0-17.5) gm/dL Neutrophils # (1.3-7.7) k/uL Lymphocytes # (1.0-4.8) k/uL Fibrinogen (200-500) mg/dL Sodium 134 L (137-145) mmol/L Chloride 109 H (98-107) mmol/L Carbon Dioxide 20 L (22-30) mmol/L BUN 31 H (9-20) mg/dL Glucose 124 H (74-99) mg/dL POC Glucose (mg/dL) (75-99) mg/dL Calcium 7.7 L (8.4-10.2) mg/dL Procalcitonin (0.02-0.09) ng/mL Assessment and Plan Assessment: 1 Acute bilateral pulmonary emboli, with significant clot burden, secondary to coronavirus infection. The patient was also found to have a left lower extremity DVT. The patient does recall being kicked by a cow in the left leg with significant pain. 2 Acute coronavirus infection, with minimal pneumonia on x-ray/computed tomography scan. 3 History of hypertension. Plan: The patient was seen and evaluated Currently stable from the pulmonary standpoint To be transitioned to oral anticoagulant To be transferred out of the ICU today We will continue to follow I, the cosigning physician, performed a history & physical examination of the patient. Lungs sounds are clear. Maintaining good O2 saturations in the 90s on room air. I discussed the assessment and plan of care with my nurse practitioner, Rain Hayward. I attest to the above note as dictated by her.
[2021-06-06] MEDS ORDERED: REMDESIVIR 100 MG in SODIUM CHLORIDE 0.9% 250 ML IVPB SCH (13:00)
[2021-06-06 14:06] VITALS: TEMP 98.4
[2021-06-06 15:52] VITALS: BP 123/83; PULSE 71; RESP 20
[2021-06-06] MEDS ORDERED: APIXABAN 5 MG TAB PO SCH (18:00)
--- NOTE | 2021-06-06 22:27 | P.DS ---
Providers Date of admission: 06/05/21 13:42 Expected date of discharge: 06/06/21 Attending physician: Anthony Aguilar Consults: 06/04/21 21:03 Consult Physician Routine Consulting Provider: Bimal Murphy Consult Reason/Comments: Multiple PE Do you want consulting provider notified?: Yes, Notify in am 06/05/21 12:35 Consult Physician Urgent Consulting Provider: Cely Rowley Consult Reason/Comments: zbigniew pulmonary emboli, possible EKOS Do you want consulting provider notified?: Yes Primary care physician: Robson Neal [facility] Course: Chief Complaint: Weak tired This is a pleasant 66-year-old patient who follows with Dr. De Jesus. Patient is having 5 days symptoms of fever or chills decreased taste and smell some loose stools very poor appetite tired rundown. 7 days ago on Saturday patient tested for positive for COVID. 19. Patient received immunoglobulin infusion on Saturday. Patient had not taken the COVID-19 vaccine. Progressively patient became more and more weak. Some shortness of breath. Very tired rundown. Barely able to eat for last 3 days. Has brought to the ER. In the ER patient had his first meal earlier today. June 05: Patient's computed tomography scan confirmed a large pulmonary embolism load and a 2-D echocardiogram showing right ventricle dilatation. Patient started on IV heparin last night. I spoke to Dr. Goldstein this morning. Late in the afternoon he took the patient down for thrombolysis. Saw the patient before the procedure. Tired. Some shortness of breath. Patient beginning tPA and IV heparin for a total of 10 hours. Through theEKOS system. June 06:EKOS was discontinued. Patient was walked around the ICU. Did well. Pulse ox good. We will get overdose of eliquis today before leaving. Questions were answered. We'll follow with pulmonary and Dr. De Jesus. Discussion and discharge planning more than 35 minutes Past medical history to include: Hypertension Social history: Mother lives with him. Works as a daily followed. No smoking no alcohol. Family history: Reviewed, noncontributory to presentation Physical examination: VITAL SIGNS: 71, 20, 123/83, 95% on room air GENERAL: Laying bed, comfortable LUNGS: Respiratory rate normal PSYCH: Alert and oriented x3; mood and affect normal. MUSCULOSKELETAL:No Clubbing/cyanosis;muscles-grossly intact NEUROLOGICAL: Cranial nerves grossly intact; no facial asymmetry, moving all 4 limbs INVESTIGATIONS, reviewed in the clinical context: June 06: White count 13.4 hemoglobin 12.7 S2 41 potassium 4.1 creatinine 0.74 2-D echocardiogram: EF 55-60%. Right ventricle moderately enlarged. Right ventricle systolic function moderately impaired Chest CTA: Right pleural effusion. Multiple large filling defects in the lower lobe pulmonary arteries bilaterally. Some involvement of the upper lobe pulmonary arteries. D-dimer greater than 34 White count 9.2 hemoglobin 14.3 platelets 260 sodium 134 potassium 3.9 BUN 22 cr eatinine 0.89 Lactic acid 2.7 AST 17 ALT 57 albumin 3.2 Coronavirus [PCR]: Detected EKG tracing sinus rhythm, right bundle branch block, some ST segment changes. Chest x-ray film personally reviewed by me-possible right-sided infiltrate Assessment and plan: -Acute COVID 19 pneumonitis. Tested +7 days prior to presentation. Had symptoms 5 days prior to that. Did not take COVID-19 vaccine Dexamethasone , IV heparin. DC with prednisone taper -Acute Bilateral large pulmonary embolism, with right ventricular strain EKOS catheter system placed for TPN and IV heparin. DC on eliquis -Acute hypoxic respiratory failure from COVID 19 pneumonitis: Improved Oxygen supplementation. Dexamethasone. -Acute dehydration from poor oral intake IV fluids -Acute medical asthenia from COVID-19 from decreased oral intake: Better -Essential hypertension Follow blood pressure -IV heparin monitoring Follow PTT Disposition: Home Patient Condition at Discharge: Stable Plan - Discharge Summary Discharge Rx Participant: No New Discharge Prescriptions: New Apixaban [Eliquis Starter Pack (for VTE)] 5 - 10 mg PO DIRECTED 30 Days #1 each Zinc Sulfate [Orazinc] 220 mg PO DAILY #30 cap predniSONE 10 mg PO DAILY #30 tab Ascorbic Acid [Vitamin C] 500 mg PO BID #60 tab Cholecalciferol [Vitamin D3 (125 Mcg = 5000 Iu)] 125 mcg PO DAILY #30 tablet Discontinued Amoxic-Pot Clav 875-125Mg [Augmentin 875-125] 1 tab PO BID Triamterene/Hydrochlorothiazid [Maxzide 37.5-25] 1 tab PO DAILY Discharge Medication List Apixaban [Eliquis Starter Pack (for VTE)] 5 - 10 mg PO DIRECTED 30 Days #1 each 06/06/21 [Rx] Ascorbic Acid [Vitamin C] 500 mg PO BID #60 tab 06/06/21 [Rx] Cholecalciferol [Vitamin D3 (125 Mcg = 5000 Iu)] 125 mcg PO DAILY #30 tablet 06/06/21 [Rx] Zinc Sulfate [Orazinc] 220 mg PO DAILY #30 cap 06/06/21 [Rx] predniSONE 10 mg PO DAILY #30 tab 06/06/21 [Rx] Follow up Appointment(s)/Referral(s): Robson De Jesus MD [Primary Care Provider] - 06/08/21 8:30 am (Please wear a mask at all times while at the facility. You may have 1 support person with you at the office.) Ranjit Pedraza DO [Doctor of Osteopathic Medicine] - 1 Week (Please call office [phone] to make a 1 week appointment. Please notifiy the staff of the recent positive Covid test.) Patient Instructions/Handouts: Coronavirus Disease 2019 (COVID-19), Pulmonary Embolism (DC) Discharge Disposition: HOME SELF-CARE
== END 2021-06-06 18:15 | disposition home or self-care (01) | DRG 166 ==
LOC: EC 20:53 → 6NMEDSUR 06-04 00:08 → 3SCARD 06-04 18:05 → OBSVTOIN 06-05 13:42 → 2SICU 06-05 14:53
PROVIDERS: ADMIT Hospitalist; ATTEND Hospitalist
PROC: 02FQ3Z0 Fragmentation of Right Pulmonary Artery, Percutaneous Approach, Ultrasonic (ICD-10-PCS; principal; 2021-06-05 22:30)
PROC: 02FR3Z0 Fragmentation of Left Pulmonary Artery, Percutaneous Approach, Ultrasonic (ICD-10-PCS; principal; 2021-06-05 22:30)
PROC: 3E06317 Introduction of Other Thrombolytic into Central Artery, Percutaneous Approach (ICD-10-PCS; principal; 2021-06-05 22:30)
DX: I26.99 Other pulmonary embolism without acute cor pulmonale (principal); U07.1 COVID-19; J12.82 Pneumonia due to coronavirus disease 2019; J96.01 Acute respiratory failure with hypoxia; I82.412 Acute embolism and thrombosis of left femoral vein; E86.0 Dehydration; I10 Essential (primary) hypertension; I27.20 Pulmonary hypertension, unspecified; U09.9 Post COVID-19 condition, unspecified; I45.10 Unspecified right bundle-branch block; R53.1 Weakness; R94.31 Abnormal electrocardiogram [ECG] [EKG]; Z79.899 Other long term (current) drug therapy
CPT/HCPCS: 36415; 37211; 71045; 71275; 80048; 80053; 81001; 83605; 83735; 84145; 84484; 85025; 85379; 85384; 85610; 85730; 86140; 87635; 93005; 93306; 93970; 96361; 96374; 96375; 99285